=== PATIENT | female | born 1960 | race Caucasian/White ===

== ENCOUNTER 2017-08-26 19:18 | Observation (INO) ==
[2017-08-26] MEDS ORDERED: predniSONE 20 MG TABLET PO ONE (19:34)
[2017-08-26] MEDS ORDERED: Ipratropium/Albuterol Neb 3 ML IH ONE (19:34)
--- NOTE | 2017-08-26 19:43 | Emergency Department Note ---
Disposition Clinical Impression: Essential hypertension Dyspnea Qualifiers: Dyspnea type: unspecified Qualified Code(s): R06.00 - Dyspnea, unspecified Chest pain Qualifiers: Chest pain type: unspecified Qualified Code(s): R07.9 - Chest pain, unspecified Disposition: Admitted As Inpatient Condition: Undetermined Referrals: Lisa Guzman MD [Primary Care Provider] - Forms: ED Satisfaction Letter Time of Disposition: 21:20 SOB HPI - General Chief Complaint: ED Shortness of Breath/Dyspnea Stated Complaint: sob/body aches Time Seen by Provider: 08/26/17 19:27 Source: patient Mode of arrival: ambulatory Limitations: no limitations Nursing Notes Reviewed: Yes Vital Signs Reviewed: Yes - History of Present Illness 57-year-old female history of hypertension, hyperlipidemia, COPD arrives to the emergency department complaining of shortness of breath over the past 5 days. The patient went to urgent care was prescribed steroids as well as antibiotics. The patient states that she has not had any improvement. She is complaining of retrosternal chest pressure. She denies any chest pain, previous [place], hemoptysis. Last stress test was 6 months ago. - Related Data Home Medications Medication Instructions Recorded Confirmed Oxycodone HCl 15 mg PO QID 02/08/17 02/08/17 Inhaler 08/22/17 Previous Rx's Medication Instructions Recorded GuaiFENesin ER [Mucinex] 600 mg PO BID #14 02/12/17 Lisinopril [Zestril] 20 mg PO DAILY #30 tab 02/12/17 Azithromycin [Zithromax] 0 tab PO DAILY #6 tablet 08/22/17 predniSONE [PredniSONE] 0 mg PO DAILY #15 tablet 08/22/17 Allergies Allergy/AdvReac Type Severity Reaction Status Date / Time acetaminophen [From Tylenol] Allergy Gastrointestinal Verified 08/22/17 13:03 Upset levofloxacin [From Levaquin] Allergy Hives Verified 08/22/17 13:03 morphine Allergy Hallucinati Verified 08/22/17 13:03 ng Penicillins Allergy Hives Verified 08/22/17 13:03 IVP dye Allergy Swelling Uncoded 08/26/17 19:21 of Lip/Tongue/Throat All systems ED: reviewed and negative except as stated. Constitutional: Denies: fever, chills, weakness ENT ED: Denies: congestion Cardiovascular: Reports: dyspnea on exertion. Denies: chest pain, palpitations , orthopnea, edema, syncope Respiratory: Reports: cough, dyspnea, sputum production. Denies: wheezes, hemoptysis, stridor Gastrointestinal: Denies: abdominal pain, nausea, vomiting, diarrhea Genitourinary: Denies: urgency, dysuria Musculoskeletal: Denies: back pain, neck pain Integumentary: Denies: rash Past Medical History - Past Medical History Attestation: Yes The following information was validated with the patient. Source: patient Medical history: Reports: COPD, hyperlipidemia, hypertension, other Surgical history: Reports: hysterectomy (partial 2004), orthopedic, other (Back surgery-fused spine/rods/pins at [place] 2006), other (Bilateral eye surgery) Psychiatric history: Reports: anxiety, depression - Social History Smoking Status: Current every day smoker Smokeless Tobacco Status: No Alcohol use: Reports: none Drug use: Reports: none Physical Exam - General Limitations: no limitations General appearance: alert, in no apparent distress - Head Head exam: atraumatic, normocephalic, normal inspection - Eye Eye exam: Present: normal appearance, PERRL, EOMI - ENT ENT exam: normal exam, normal oropharynx, mucous membranes moist - Neck Neck exam: Present: normal inspection, full ROM, trachea midline - Chest Chest inspection: Present: normal inspection, symmetric chest wall rise - Respiratory Respiratory exam: Present: wheezes (Mild expiratory) - Cardiovascular Cardiovascular exam: Present: regular rate, normal rhythm, normal heart sounds - Abdominal Exam Abdominal exam: Present: soft, Non-Tender. Absent: tenderness, distention, guarding, rebound, rigidity - Extremities Exam Extremities exam: Present: normal inspection, full ROM. Absent: tenderness, pedal edema - Neurological Exam Neurological exam: Present: alert, oriented X3 - Skin Skin exam: Present: warm, dry, intact, normal color Course Vital Signs Temperature 97.9 F 08/26/17 19:21 Pulse Rate 99 08/26/17 19:21 Respiratory Rate 16 08/26/17 19:21 Blood Pressure 206/141 08/26/17 19:21 O2 Sat by Pulse Oximetry 99 08/26/17 19:21 Temperature 97.9 F 08/26/17 19:21 Pulse Rate 99 08/26/17 19:21 Respiratory Rate 17 08/26/17 19:46 Blood Pressure 206/141 08/26/17 19:21 O2 Sat by Pulse Oximetry 96 08/26/17 19:46 Oxygen Delivery Oxygen Delivery Room Air Shortness of Breath/Dyspnea - MDM Narrative Medical decision making narrative: Workup in the emergency department history is very hypertensive patient. The patient was complaining of chest pressure. After giving nitroglycerin the pressure continued to decline in the patient's chest pressure improved. We will admit the patient to the hospital at this time for further workup and likely trending troponins. Patient made aware and agrees to plan. No further questions or concerns noted at this time. Dr. Gamble Accepted. - Lab Data Lab results reviewed: Yes I reviewed the patient's lab results. Result diagrams: 08/26/17 19:47 08/26/17 19:47 Lab Results 08/26/17 08/26/17 08/26/17 Range/Units 19:47 19:47 19:47 WBC 7.7 (4.3-11.1) K/mcL RBC 5.02 H (3.82-4.97) M/mcL Hgb 14.6 (11.5-15.4) g/dL Hct 43.2 (35.3-44.9) % MCV 86.1 (83.0-100.0) fL MCH 29.1 (28.0-33.3) pg MCHC 33.8 (31.6-35.5) g/dL RDW 13.4 (11.5-14.5) % Plt Count 292 (140-400) K/mcL MPV 9.8 (9.4-12.4) fL Seg Neutrophils % 74.0 % Lymphocytes % 22.0 % Monocytes % 4.0 % Neutrophils # 5.7 (1.6-8.9) K/mcL Lymphocytes # 1.7 (0.6-4.6) K/mcL Monocytes # 0.3 (0.0-1.3) K/mcL Reactive Lymphocytes Present A (Not Present) Platelet Estimate Normal (Normal) Sodium 135 L (136-145) mEq/L Potassium 3.5 (3.5-5.1) mEq/L Chloride 102 (98-107) mEq/L Carbon Dioxide 28 (23-29) mEq/L BUN 12 (6-20) mg/dL Creatinine 0.87 (0.60-1.20) mg/dL Est GFR ( Amer) > 60 (> 60) Est GFR (Non-Af Amer) > 60 (> 60) BUN/Creatinine Ratio 14 (6-26) Glucose 104 (70-105) mg/dL Calculated Osmolality 280 (280-300) Calcium 8.8 (8.6-10.3) mg/dL Troponin I < 0.03 (< 0.04) ng/mL B-Natriuretic Peptide 79 (Less than 100) pg/mL - Radiology Data Radiology results reviewed: Yes I reviewed the patient's radiology results. Chest X-Ray 08/26/17 19:34 IMPRESSION: No acute process. D/ / Jaxon Mejia MD / Jaxon Mejia MD Interpreting Provider: Jaxon Mejia MD - EKG Data EKG attestation: Yes I reviewed and interpreted this EKG. EKG results narrative: EKG 91 bpm. No sinus rhythm. No ST elevation or ST depression noted.
[2017-08-26] MEDS ORDERED: Nitroglycerin 0.4 MG TAB.SUBL SL PRN (19:58)
[2017-08-26 20:18] LABS: BUN/Creatinine Ratio 14 (6-26); Blood Urea Nitrogen 12 mg/dL (6-20); Calcium 8.8 mg/dL (8.6-10.3); Carbon Dioxide 28 mEq/L (23-29); Chloride 102 mEq/L (98-107); Glucose 104 mg/dL (70-105); Osmolality,Calculated 280 (280-300); Potassium 3.5 mEq/L (3.5-5.1); Sodium 135 mEq/L (136-145); Troponin I < 0.03 ng/mL (< 0.04); eGFR For African Americans > 60 (> 60); eGFR For Non-African Americans > 60 (> 60)
[2017-08-26 20:31] LABS: Hematocrit 43.2 % (35.3-44.9); Hemoglobin 14.6 g/dL (11.5-15.4); Mean Corpuscular HGB Conc 33.8 g/dL (31.6-35.5); Mean Corpuscular Hemoglobin 29.1 pg (28.0-33.3); Mean Corpuscular Volume 86.1 fL (83.0-100.0); Mean Platelet Volume 9.8 fL (9.4-12.4); Monocytes # 0.3 K/mcL (0.0-1.3); Platelet Count 292 K/mcL (140-400); Red Blood Count 5.02 M/mcL (3.82-4.97); Red Cell Distribution Width 13.4 % (11.5-14.5)
--- NOTE | 2017-08-26 20:33 | Emergency Department Note ---
Disposition Clinical Impression: Dyspnea Qualifiers: Dyspnea type: unspecified Qualified Code(s): R06.00 - Dyspnea, unspecified Chest pain Qualifiers: Chest pain type: other chest pain Qualified Code(s): R07.89 - Other chest pain Hypertension Qualifiers: Hypertension type: essential hypertension Qualified Code(s): I10 - Essential ( primary) hypertension Disposition: Admitted As Inpatient Condition: Fair Time of Disposition: 21:09 SOB HPI - General Chief Complaint: ED Shortness of Breath/Dyspnea Stated Complaint: sob/body aches Time Seen by Provider: 08/26/17 19:27 Source: patient Mode of arrival: ambulatory Limitations: no limitations Nursing Notes Reviewed: Yes Vital Signs Reviewed: Yes - Related Data Home Medications Medication Instructions Recorded Confirmed Oxycodone HCl 15 mg PO QID PRN 02/08/17 08/26/17 Ipratropium/Albuterol Sulfate 2 puff IH Q6H PRN 08/22/17 08/26/17 [Combivent Respimat Inhal [place]] Cholecalciferol (D-3) [Vitamin D] 1,000 unit PO DAILY 08/26/17 08/26/17 Cyclobenzaprine HCl 5 mg PO TID PRN 08/26/17 08/26/17 Fluticasone Propionate Nasal 50 mcg NS DAILY PRN 08/26/17 08/26/17 [Flonase] Gabapentin [Neurontin] 400 mg PO TID PRN 08/26/17 08/26/17 Loratadine [Claritin] 10 mg PO DAILY PRN 08/26/17 08/26/17 [place]-3/Dha/Epa/Fish Oil [[place]-3 1,000 mg PO DAILY 08/26/17 08/26/17 Fish Oil 1,000 mg Sfgl] Omeprazole Magnesium [Prilosec Otc] 20 mg PO DAILY 08/26/17 08/26/17 Promethazine HCl 12.5 mg PO Q8H PRN 08/26/17 08/26/17 Simvastatin [Zocor] 40 mg PO HS 08/26/17 08/26/17 Previous Rx's Medication Instructions Recorded Lisinopril [Zestril] 20 mg PO DAILY #30 tab 02/12/17 Allergies Allergy/AdvReac Type Severity Reaction Status Date / Time acetaminophen [From Tylenol] Allergy Gastrointestinal Verified 08/22/17 13:03 Upset levofloxacin [From Levaquin] Allergy Hives Verified 08/22/17 13:03 morphine Allergy Hallucinati Verified 08/22/17 13:03 ng Penicillins Allergy Hives Verified 08/22/17 13:03 IVP dye Allergy Swelling Uncoded 08/26/17 19:21 of Lip/Tongue/Throat Constitutional: Denies: fever, chills, weakness ENT ED: Denies: congestion Cardiovascular: Reports: dyspnea on exertion. Denies: chest pain, palpitations , orthopnea, edema, syncope Respiratory: Reports: cough, dyspnea, sputum production. Denies: wheezes, hemoptysis, stridor Gastrointestinal: Denies: abdominal pain, nausea, vomiting, diarrhea Genitourinary: Denies: urgency, dysuria Musculoskeletal: Denies: back pain, neck pain Integumentary: Denies: rash Past Medical History - Past Medical History Medical history: Reports: COPD, hyperlipidemia, hypertension, other Surgical history: Reports: hysterectomy (partial 2004), orthopedic, other (Back surgery-fused spine/rods/pins at [place] 2006), other (Bilateral eye surgery) Psychiatric history: Reports: anxiety, depression - Social History Smoking Status: Current every day smoker Smokeless Tobacco Status: No Alcohol use: Reports: none Drug use: Reports: none Physical Exam - General Limitations: no limitations General appearance: alert, in no apparent distress Course Vital Signs Temperature 97.9 F 08/26/17 19:21 Pulse Rate 99 08/26/17 19:21 Respiratory Rate 16 08/26/17 19:21 Blood Pressure 206/141 08/26/17 19:21 O2 Sat by Pulse Oximetry 99 08/26/17 19:21 Temperature 97.5 F L 08/26/17 22:59 Pulse Rate 79 08/26/17 22:59 Respiratory Rate 16 08/26/17 22:59 Blood Pressure 200/119 08/26/17 22:59 O2 Sat by Pulse Oximetry 97 08/26/17 22:59 Oxygen Delivery Oxygen Delivery Room Air Shortness of Breath/Dyspnea - Lab Data Result diagrams: 08/26/17 19:47 08/26/17 19:47 Lab Results 08/26/17 08/26/17 08/26/17 Range/Units 19:47 19:47 19:47 WBC 7.7 (4.3-11.1) K/mcL RBC 5.02 H (3.82-4.97) M/mcL Hgb 14.6 (11.5-15.4) g/dL Hct 43.2 (35.3-44.9) % MCV 86.1 (83.0-100.0) fL MCH 29.1 (28.0-33.3) pg MCHC 33.8 (31.6-35.5) g/dL RDW 13.4 (11.5-14.5) % Plt Count 292 (140-400) K/mcL MPV 9.8 (9.4-12.4) fL Seg Neutrophils % 74.0 % Lymphocytes % 22.0 % Monocytes % 4.0 % Neutrophils # 5.7 (1.6-8.9) K/mcL Lymphocytes # 1.7 (0.6-4.6) K/mcL Monocytes # 0.3 (0.0-1.3) K/mcL Reactive Lymphocytes Present A (Not Present) Platelet Estimate Normal (Normal) Sodium 135 L (136-145) mEq/L Potassium 3.5 (3.5-5.1) mEq/L Chloride 102 (98-107) mEq/L Carbon Dioxide 28 (23-29) mEq/L BUN 12 (6-20) mg/dL Creatinine 0.87 (0.60-1.20) mg/dL Est GFR ( Amer) > 60 (> 60) Est GFR (Non-Af Amer) > 60 (> 60) BUN/Creatinine Ratio 14 (6-26) Glucose 104 (70-105) mg/dL Calculated Osmolality 280 (280-300) Calcium 8.8 (8.6-10.3) mg/dL Troponin I < 0.03 (< 0.04) ng/mL B-Natriuretic Peptide 79 (Less than 100) pg/mL Attestation Statement - Attestation Attestation: I, John Mike, examined this patient and my medical decision-making was reviewed with the SKILLED NURSING FACILITY COUNSELOR/PA/Advanced Practice Nurse/Resident Physician. I agree with the documented findings, disposition and treatment plan as described except to the extent set forth below. 57-year-old female presents emergency Department with concerns of shortness of breath and chest pain. Patient states her shortness of breath has been worsening over the past 4-5 days. She describes chest pain today as a pressure in the center of her chest which does not radiate. Patient states the breathing feels similar to her previous COPD exacerbations however she has never had chest pain with her previous COPD. Patient denies associated diaphoresis or nausea or vomiting. Patient had a similar experience within the past 6 months and was admitted to the hospital for further evaluation of her pain, she had a stress test however the test was nondiagnostic due to ST changes at baseline. 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 Patient initial troponin is negative. Her EKG showed normal sinus rhythm with a rate of 91 without evidence of STEMI. Patient will be admitted to the hospitalist for further care and evaluation.
[2017-08-26 20:47] LABS: Lymphocytes # 1.7 K/mcL (0.6-4.6); Neutrophils # 5.7 K/mcL (1.6-8.9); Platelet Estimate Normal (Normal); Reactive Lymphocytes Present (Not Present)
[2017-08-26] MEDS ORDERED: amLODIPine 5 MG TABLET PO SCH (21:00)
[2017-08-26] MEDS ORDERED: Loratadine 10 MG TABLET PO PRN (22:05)
[2017-08-26] MEDS ORDERED: Fluticasone Propionate Nasal 50 MCG/SPRAY BOTTLE NS PRN (22:05)
[2017-08-26] MEDS ORDERED: NON-FORMULARY MEDICATION 1 EACH EACH (Ipratropium/Albuterol Sulfate [Combivent Respimat In IH PRN (22:05)
[2017-08-26] MEDS ORDERED: Naloxone 0.4 MG/ML INJ IVP PRN ×2 (22:05→22:20)
[2017-08-26] MEDS ORDERED: Gabapentin 400 MG CAPSULE PO PRN (22:05)
--- NOTE | 2017-08-26 22:18 | Internal Med History&Physical ---
Date of Encounter: 08/26/17 Time of Encounter: 22:14 Assessment and Plan (1) Hypertensive crisis Current visit: Yes Status: Acute We will attempt to spare IV therapy. Continue lisinopril. Add norvasc at bedtime. Add thiazide in the morning prn IV hydralazine q4 BP check (2) Chest pain Current visit: Yes Status: Acute suspect related to poorly controlled HTN - will attempt to control BP with pills , prn IV trend trop TTE Qualifiers: Chest pain type: other chest pain Qualified Code(s): R07.89 - Other chest pain; R07.8 - Other chest pain (3) Essential hypertension Current visit: Yes Status: Acute adjusting meds (4) COPD (chronic obstructive pulmonary disease) Current visit: No Status: Acute stable. chronic Qualifiers: Qualified Code(s): J44.9 - Chronic obstructive pulmonary disease, unspecified Internal Medicine - H&P: HPI Chief complaint: Chest heaviness History of present illness: Ms. Loyd is a 57 year old female who presents with chest pain evaluation. Found to be in hypertensive crisis. The patient has a history of COPD, hypertension for last few years and is on 20 mg lisinopril at home. He has been experiencing chest heaviness, sternal location, no radiation, 8 out of 10, for the last week with no improving or worsening factors on review. She does have chronic low back pain s/p back surgery and some 50 mg 4 times a day of oxycodone. On arrival in the ER blood pressure was elevated with SBP > 200/140 EKG personally reviewed with rate of 91, normal sinus rhythm XR/XR chest 1V portable IMPRESSION: No acute process. Past Med Surg Social Fam HX - Past Medical History Medical history: COPD, hyperlipidemia, hypertension, other Psychiatric history: anxiety, depression - Past Surgical History Surgical History: hysterectomy (partial 2004), orthopedic, other (Back surgery- fused spine/rods/pins at [place] 2006), other (Bilateral eye surgery) - Social History Smoking Status: Current every day smoker Smokeless Tobacco Status: No Alcohol use: none Drug use: none - Family History Father Living Status: Hx Family Respiratory Disorders: Yes Internal Medicine - H&P: Meds Oxycodone HCl 15 mg PO QID PRN 02/08/17 [History] Lisinopril [Zestril] 20 mg PO DAILY #30 tab 02/12/17 [Rx] Ipratropium/Albuterol Sulfate [Combivent Respimat Inhal [place]] 2 puff IH Q6H PRN 08/22/17 [History] Cholecalciferol (D-3) [Vitamin D] 1,000 unit PO DAILY 08/26/17 [History] Cyclobenzaprine HCl 5 mg PO TID PRN 08/26/17 [History] Fluticasone Propionate Nasal [Flonase] 50 mcg NS DAILY PRN 08/26/17 [History] Gabapentin [Neurontin] 400 mg PO TID PRN 08/26/17 [History] Loratadine [Claritin] 10 mg PO DAILY PRN 08/26/17 [History] [place]-3/Dha/Epa/Fish Oil [[place]-3 Fish Oil 1,000 mg Sfgl] 1,000 mg PO DAILY [History] Omeprazole Magnesium [Prilosec Otc] 20 mg PO DAILY 08/26/17 [History] Promethazine HCl 12.5 mg PO Q8H PRN 08/26/17 [History] Simvastatin [Zocor] 40 mg PO HS 08/26/17 [History] 3 Allergy/AdvReac Type Severity Reaction Status Date / Time acetaminophen [From Tylenol] Allergy Gastrointestinal Verified 08/22/17 13:03 Upset levofloxacin [From Levaquin] Allergy Hives Verified 08/22/17 13:03 morphine Allergy Hallucinati Verified 08/22/17 13:03 ng Penicillins Allergy Hives Verified 08/22/17 13:03 IVP dye Allergy Swelling Uncoded 08/26/17 19:21 of Lip/Tongue/Throat All Systems PM: A 10-system review of systems was performed and is negative for pertinent findings except as documented above in the HPI. Review of systems: ROS 14 point review of systems reviewed as best as possible given presentation. Pertinent positive or negative as per HPI or otherwise reviewed as negative - Constitutional Vitals: Temp Pulse Resp BP Pulse Ox 97.9 F 99 17 206/141 96 08/26/17 19:21 08/26/17 19:21 08/26/17 19:46 08/26/17 19:21 08/26/17 19:46 Exam: General - AAO x 3 Psych - Appropriate affect/speech. No agitation Eyes - TISH. Eye lids intact. No scleral icterus Neuro - No gross peripheral or central neuro deficits on inspection Heart - Sinus. RRR. S1 and S2 present. No added HS/murmurs appreciated. No elevated JVD appreciated. Lung - Adequate air entry b/l, No crackles/wheezes appreciated GI - Soft, non-tender. No hepatosplenomegaly/ascites. BS+ - No CVA/suprapubic tenderness or palpable bladder distension Skin - Intact. No rash/petechiae/ecchymosis. Warm extremities MSK - Joints with normal ROM. No joint swellings Internal Med - H&P Results - Labs CBC & Chem 7: 08/26/17 19:47 08/26/17 19:47
[2017-08-26] MEDS ORDERED: Ipratropium 1 PUFF INHALER IH PRN (22:58)
[2017-08-26] MEDS: *HR* OxyCODONE Immed Rel 15 MG TABLET PO PRN (23:05)
[2017-08-27] MEDS: *HR* OxyCODONE Immed Rel 15 MG TABLET PO PRN ×2 (05:48→11:56)
[2017-08-27] MEDS ORDERED: Ibuprofen 600 MG TABLET PO PRN (07:49)
[2017-08-27] MEDS ORDERED: Cholecalciferol (D-3) 1,000 UNIT TABLET PO SCH (09:00)
[2017-08-27] MEDS ORDERED: Omega-3 Fish Oil 1,000 Mg PO SCH (09:00)
[2017-08-27] MEDS ORDERED: Lisinopril 20 MG TABLET PO SCH (09:00)
[2017-08-27] MEDS ORDERED: Lisinopril 20 MG TABLET PO ONE (12:49)
[2017-08-27 14:18] VITALS: BP 146/80
--- NOTE | 2017-08-27 15:14 | Discharge Summary ---
- NOTES TO OUTPATIENT PROVIDER Notes to Outpatient Provider: Follow-up with primary care physician for reassessment of blood pressure, patient was instructed to keep a blood pressure log. Date of Encounter: 08/27/17 Time of Encounter: 15:11 - Discharge Diagnosis (1) Chest pain Priority: Primary Status: Acute Qualifiers: Chest pain type: other chest pain Qualified Code(s): R07.89 - Other chest pain; R07.8 - Other chest pain (2) Hypertensive crisis Priority: Primary Status: Acute (3) Hypertension Priority: Primary Status: Chronic Qualifiers: Hypertension type: essential hypertension Qualified Code(s): I10 - Essential (primary) hypertension (4) Heavy tobacco smoker Priority: Primary Status: Chronic Hospital course: Ms. Loyd is a 57 year old female who presented with chest pain in the ER was found to be in hypertensive crisis. She has a history of COPD, hypertension on 20 mg lisinopril at home, anxiety, tobacco abuse, depression, hyperlipidemia, chronic low back pain status post back surgery with neuropathy on multiple pain medications. Her blood pressure was 200/140 in the ER. EKG was a sinus rhythm rate of [address] elevation or changes. Chest x-ray with no acute changes. Troponins were negative. Echocardiogram was reviewed with LVEF of 60% . Normal LV chamber size wall thickness and function. Mild left ventricular diastolic dysfunction. Normal right ventricular structure and function. No evidence point or hypertension. No significant valvular dysfunction. All wall segments showed normal motion. Her blood pressure is better controlled on the current regime and she is very anxious for discharge discussed that she will be sent home on and she will keep a blood pressure log. She will follow-up with her PCP next week. Tobacco cessation was recommended Discharge discussed with: patient, nurse Time spent discussing smoking cessation with patient: 3 to 10 minutes - Time Spent with Patient Total time spent providing and/or coordinating discharge services: Less than 30 minutes - Discharge Medications Prescriptions: Amlodipine Besylate 10 mg PO DAILY #30 tablet Lisinopril [Zestril] 40 mg PO DAILY #30 tablet Metoprolol [Lopressor] 12.5 mg PO BID #30 tablet Home Medications: Oxycodone HCl 15 mg PO QID PRN 02/08/17 [History] Ipratropium/Albuterol Sulfate [Combivent Respimat Inhal [place]] 2 puff IH Q6H PRN 08/22/17 [History] Cholecalciferol (D-3) [Vitamin D] 1,000 unit PO DAILY 08/26/17 [History] Cyclobenzaprine HCl 5 mg PO TID PRN 08/26/17 [History] Fluticasone Propionate Nasal [Flonase] 50 mcg NS DAILY PRN 08/26/17 [History] Gabapentin [Neurontin] 400 mg PO TID PRN 08/26/17 [History] Loratadine [Claritin] 10 mg PO DAILY PRN 08/26/17 [History] [place]-3/Dha/Epa/Fish Oil [[place]-3 Fish Oil 1,000 mg Sfgl] 1,000 mg PO DAILY [History] Omeprazole Magnesium [Prilosec Otc] 20 mg PO DAILY 08/26/17 [History] Promethazine HCl 12.5 mg PO Q8H PRN 08/26/17 [History] Simvastatin [Zocor] 40 mg PO HS 08/26/17 [History] Amlodipine Besylate 10 mg PO DAILY #30 tablet 08/27/17 [Rx] Lisinopril [Zestril] 40 mg PO DAILY #30 tablet 08/27/17 [Rx] Metoprolol [Lopressor] 12.5 mg PO BID #30 tablet 08/27/17 [Rx] Allergies/Adverse Reactions: 3 Allergy/AdvReac Type Severity Reaction Status Date / Time acetaminophen [From Tylenol] Allergy Gastrointestinal Verified 08/22/17 13:03 Upset levofloxacin [From Levaquin] Allergy Hives Verified 08/22/17 13:03 morphine Allergy Hallucinati Verified 08/22/17 13:03 ng Penicillins Allergy Hives Verified 08/22/17 13:03 IVP dye Allergy Swelling Uncoded 08/26/17 19:21 of Lip/Tongue/Throat Date of admission: 08/26/17 21:49 Primary care physician: Lisa Guzman Discharging clinician: Gaviota Mac Anticipated date of discharge: 08/27/17 - Constitutional Vitals: Temp Pulse Resp BP Pulse Ox 98.1 F 85 16 146/80 97 08/27/17 11:59 08/27/17 11:59 08/27/17 11:59 08/27/17 14:18 08/27/17 11:59 General appearance: Present: cooperative, A&O X 3, pleasant, no acute distress, answers questions appropriately - Head Head exam: Present: atraumatic, normocephalic - Eye Eye exam: Present: PERRL, conjuntiva pink, sclera anicteric Pupils: Present: PERRL - Neck Neck exam general surgery: Present: supple, trachea midline. Absent: lymphadenopathy - Respiratory Respiratory exam: Present: CTAB. Absent: accessory muscle use, rales, rhonchi, wheezes - Cardiovascular Cardiovascular exam: Present: RRR, +S1, +S2. Absent: diastolic murmur, gallop, rubs, systolic murmur - GI/Abdominal GI/Abdominal exam: Present: normal bowel sounds, soft, no peritoneal signs. Absent: distended, tenderness - Extremities Exam Extremities exam: Present: warm, radial pulses palpable and symmetrical. Absent : calf tenderness, cyanotic, joint swelling, pedal edema - Neurological Exam Neurological exam: Present: alert, CN II-XII intact, normal gait, oriented X3, no focal deficits. Absent: pronater drift, facial droop, speech deficit - Skin Skin exam: Present: dry, intact, normal color, warm - Patient Status Disposition: Home, Self-Care Condition: Fair Functional capacity at discharge: independent ambulation Overall status at discharge: patient is progressing back to baseline - Discharge Instructions Follow Up With: Lisa Guzman MD [Primary Care Provider] - 09/01/17 3:15 pm - Diet and Activity Activity: resume usual activities as tolerated Diet: advance to your usual diet, low fat, low cholesterol, low salt diet
--- NOTE | 2017-08-27 15:20 | Electrocardiograph Report ---
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
== END 2017-08-27 16:21 | disposition home or self-care (01) ==
LOC: EMEROO 19:18 → 3BNU 19:18
PROVIDERS: ADMIT Internal Medicine Hematology & Oncology; ATTEND Registered Nurse